=== PATIENT | female | born 1955 | race Caucasian/White ===

== ENCOUNTER → 2017-05-19 | Outpatient (CLI) | payer OTHER ==
[~2017-05-19] MED LIST: MORPHINE SULFATE 4 MG/ML INJ IV PUSH ONE; ONDANSETRON HCL 4 MG/2 ML VIAL IV PUSH ONE
== END ==
LOC: HEDF 10:44
DX: S41.102A Unspecified open wound of left upper arm, initial encounter (principal); V29.50XA Motorcycle passenger injured in collision with unspecified motor vehicles in traffic accident, initial encounter
CPT/HCPCS: A0431; A0436; J2270; J2405